=== PATIENT | male | born 1940 | race Caucasian/White ===

== ENCOUNTER 2023-05-12 09:26 | Emergency (ER) | payer MEDICARE, OTHER, SELFPAY ==
[2023-05-12 09:36] VITALS: BP 164/94; PULSE 91; RESP 16; TEMP 36.5; O2SAT 98; BMI 27.8
[2023-05-12 09:40] VITALS: BP 167/90; PULSE 88; RESP 16; O2SAT 95
--- NOTE | 2023-05-12 09:57 | ECG_ITS ---
[facility] Test Date: 2023-05-12 Pat Name: Ildefonso Vu Department: Room: Gender: Male Estimator And Drafter: : 1940 Requested By: Alexia Ridley Order Number: [id number] Harpreet MD: Tarah Nolasco M.D. Measurements Intervals [place] Rate: 92 P: 76 [place]: 175 QRS: -64 QRSD: 130 T: 59 QT: 372 QTc: 461 Interpretive Statements SINUS RHYTHM RIGHT BUNDLE BRANCH BLOCK [120+ ms QRS DURATION, UPRIGHT V1, 40+ ms S IN I/aVL/V4/V5/V6] LEFT ANTERIOR FASCICULAR BLOCK [QRS AXIS <= -45, QR IN I, RS IN II] POSSIBLE LEFT VENTRICULAR HYPERTROPHY [VOLTAGE CRITERIA PLUS LAE OR QRS WIDENING] No previous ECG available for comparison Electronically Signed On 05-12-2023 18:34:12 RESEARCH TECH by Tarah Nolasco M.D. [id number]
--- NOTE | 2023-05-12 09:57 | XR_ITS ---
WS: [id number] Exam: XR chest 1V portable [id number] Date/Time of Exam: 05/12/2023 10:00 AM Reason For Exam: dizziness No priors. The lungs are fully expanded and clear. Unremarkable cardiomediastinal silhouette for technique. No p leural effusions. Osseous structures are intact. IMPRESSION: 1. No acute cardiopulmonary finding.
--- NOTE | 2023-05-12 09:58 | ED_ITS ---
Documented by User: PASCUAL Iglesias 05/12/23 14:35 HPI - Dizziness General: Chief Complaint: Dizziness Stated Complaint: Dizzy, Nausea Time Seen by Provider: 05/12/23 09:46 Source: patient and family Mode of arrival: wheelchair Limitations: no limitations History of Present Illness: HPI Narrative: Patient is a nice 83-year-old male who presents to ED today along with several family members for concerns of dizziness. According to family and patient report he struck his head on a post approximately 7 to 10 days ago and feels like the dizziness started following this. He does not remember getting dizzy prior to hitting his head and states he did so out of clumsiness . Family states patient is normally ambulatory without any difficulty or assistance and often carries his grandchildren around the home. They state now he is not able to walk without assistance/falling. He was reportedly seen at [facility] a few days ago and admitted with hyponatremia and kept overnight and discharged the following day. Family and patient states symptoms have not improved. On exam, some mild smile asymmetry noted. states she mentioned this to [facility] as it was new. He does appear to have some very mild slurred speech. He does not complain of numbness, tingling, loss of sensation, or weakness to his extremities but does complain of generalized weakness. Patient states dizziness improves as long as I stay still and worsens with any form of movement, positional changes, ambulation. MD elicited complaint: dizziness Onset (ago): day(s) Severity: moderate Description: sense of movement, off-balance and difficulty walking History of similar symptoms: No Exacerbating factors: movement/ambulation and change in body position Relieving factors: remaining still Associated symptoms: Denies change in hearing, chest pain, chills, headache(s), malaise, nausea, nasal congestion, palpitations, syncope, tinnitus or vomiting Associated neuro symptoms: Deny numbness in extremities Stroke scale total: 2 Review of Systems Const: Denies: fever(s), chills, body aches, fatigue or malaise Eyes: Reports: change in vision (states I don't see as well as I used to but cannot elaborate any further ); Denies: blurry vision, photophobia, floaters or seeing flashes ENMT: Denies: throat pain, odynophagia, ear or mastoid pain, change in hearing, tinnitus, nasal discharge, nasal congestion or sinus pain Card: Denies: chest pain, palpitations, irregular heart rhythm, edema, swelling of feet/ankles, lightheadedness, syncope, pre-syncope, dyspnea on exertion, orthopnea, leg pain with exertion or acrocyanosis Resp: Denies: dyspnea, productive cough or pain on inspiration GI: Denies: abdominal pain, nausea, vomiting, heartburn or diarrhea : Denies: flank pain, difficulty urinating or dysuria Musc: Denies: neck pain, back pain, extremity pain, extremity swelling or joint pain Skin/Breast: Denies: rash Neuro: Reports: difficulty walking, frequent falls and dizziness; Denies: headache(s), numbness in extremities, weakness in extremities, sensory changes or seizure-like activity Physical Exam Const: COMMON NORMALS: no acute distress, average body habitus, patient oriented x3, no limitations, healthy appearing, alert and well nourished GENERAL APPEARANCE: cooperative ORIENTATION/CONSCIOUSNESS: Yes awake, Yes oriented to person and Yes oriented to place HENMT: COMMON NORMALS: normocephalic, atraumatic, hearing grossly normal bilaterally and external ears normal HEAD & SCALP: normal to inspection, normocephalic and atraumatic FACE & SINUS: other (asymmetrical smile noted) EXTERNAL EAR: Yes external ears normal Eye: GENERAL EYE: appearance normal, both eyes and all related structures and normal light reflex DIRECT OPHTHALMOSCOPY: Yes normal light reflex Neck/C-Spine: COMMON NORMALS: full ROM, no lymphadenopathy, supple and no meningeal signs Chest: COMMONS NORMALS: normal inspection of the chest Resp: COMMON NORMALS: normal respiratory effort and clear to auscultation bilaterally AUSCULTATION: clear to auscultation bilaterally Cardio: COMMON NORMALS: regular rate and regular rhythm RATE: regular rate RHYTHM: regular rhythm GI: COMMON NORMALS: Normal to inspection, nondistended, normoactive bowel sounds present, Soft to palpation, non-tender, No hepatosplenomegaly present and no masses PALPATION: Yes Soft to palpation and Yes No hepatosplenomegaly present : COMMON NORMALS: Yes no CVA tenderness BLADDER/KIDNEY EXAM: Yes no CVA tenderness Back/Pelvis: COMMON NORMALS: no CVA tenderness and thoracic and lumbar spine normal to inspection Extremity: COMMON NORMALS: normal to inspection, no clubbing, cyanosis or edema, no calf tenderness and no pedal edema GENERAL: Yes normal exam except as noted Neuro: LENA COMA SCALE: document GCS findings [place] coma scale eye opening: Spontaneous [place] coma scale verbal response: Orientated [place] coma scale motor response: Obey commands Lena coma scale total score: 15 COMMON NORMALS: patient oriented x3 SENSORIUM/ORIENTATION: Yes alert, Yes oriented to person and Yes oriented to place MENINGEAL SIGNS: Yes no meningeal signs CRANIAL NERVES: Yes CN VII (facial) Laterality: right CN VII findings: asymmetrical smile SPEECH: abnormal speech Details: slurred GAIT: Yes Unable to assess gait Skin: COMMON NORMALS: no rashes or lesions noted GENERAL SKIN EXAM: no rashes or lesions noted Course Vital Signs: Vital signs: Vital Signs Temperature 97.7 F 05/12/23 09:36 Pulse Rate 76 05/12/23 13:29 Respiratory Rate 16 05/12/23 12:00 Blood Pressure 162/88 05/12/23 13:29 Pulse Oximetry 97 05/12/23 13:29 Oxygen Delivery Me thod Room Air 05/12/23 13:29 MDM - Dizziness Medical Decision Making Patient's work-up here is essentially benign. Sodium was mildly low at 129. This is where he was when he was admitted to [facility]. These records were obtained and reviewed. UA is clear. CXR is unremarkable. CT head is negative. CTA head/neck is unremarkable. Patient actually ambulated here in the emerge ncy department fairly well. Dr. Moore aware of patient during his stay and agrees with current work-up/care plan here. We will transfer care to him for definitive disposition. ES Medical Records I reviewed the patient's medical records. Lab Data 05/12/23 10:12 05/12/23 10:12 Laboratory Results WBC 10.13 10^3/uL (3.29-11.43) 05/12/23 10:12 RBC 4.59 10^6/uL (3.85-5.65) 05/12/23 10:12 Hgb 14.20 g/dL (11.27-16.99) 05/12/23 10:12 Hct 41.7 % (37-53) 05/12/23 10:12 MCV 90.8 fl (82-101) 05/12/23 10:12 MCH 30.9 pg (27-33) 05/12/23 10:12 MCHC 34.1 g/dL (30-55) 05/12/23 10:12 RDW 12.7 % (12.1-15.1) 05/12/23 10:12 Plt Count 267 10^3/cmm (157-399) 05/12/23 10:12 MPV 8.5 fL (7.4-10.4) 05/12/23 10:12 Neut % (Auto) 67.3 % 05/12/23 10:12 Lymph % (Auto) 22.0 % 05/12/23 10:12 [place] % (Auto) 8.3 % 05/12/23 10:12 Eos % (Auto) 1.0 % 05/12/23 10:12 Baso % (Auto) 0.3 % 05/12/23 10:12 Neut # (Auto) 6.82 10^3/uL (1.8-7.7) 05/12/23 10:12 Lymph # (Auto) 2.2 10^3/uL (0.8-4.8) 05/12/23 10:12 [place] # (Auto) 0.8 10^3/uL (0.2-0.9) 05/12/23 10:12 Eos # (Auto) 0.1 10^3/uL (0.0-0.8) 05/12/23 10:12 Baso # (Auto) 0.0 10^3/uL (0.0-0.1) 05/12/23 10:12 Nucleated RBC % (auto) 0 % 05/12/23 10:12 Nucleated RBCs # 0.0 /100WBC 05/12/23 10:12 PT 13.40 SECONDS (12.1-14.9) 05/12/23 10:12 INR 0.99 (0.8-1.2) 05/12/23 10:12 APTT 26.3 SECONDS (23.9-36.7) 05/12/23 10:12 Sodium 129 mmol/L (136-145) L 05/12/23 10:12 Potassium 4.1 mmol/L (3.5-5.1) 05/12/23 10:12 Chloride 94 mmol/L (98-107) L 05/12/23 10:12 Carbon Dioxide 27 mmol/L (22-29) 05/12/23 10:12 Anion Gap 12.1 (5-19) 05/12/23 10:12 BUN 16 mg/dL (8-23) 05/12/23 10:12 Creatinine 1.2 mg/dL (0.7-1.2) 05/12/23 10:12 GFR Calculation Not Reportable 05/12/23 10:12 Glucose 93 mg/dL (65-115) 05/12/23 10:12 POC Glucose 113 mg/dL (70-110) H 05/12/23 10:03 Calculated Osmolality 269 mOsm/kg (285-295) L 05/12/23 10:12 Calcium 8.8 mg/dL (8.5-10.5) 05/12/23 10:12 Total Bilirubin 0.3 mg/dL (0.15-1.2) 05/12/23 10:12 AST 11 U/L (0-40) 05/12/23 10:12 ALT 9 U/L (0-41) 05/12/23 10:12 Alkaline Phosphatase 95 U/L (40-130) 05/12/23 10:12 Total Protein 5.8 g/dL (6.6-8.7) L 05/12/23 10:12 Albumin 3.6 g/dL (3.5-5.2) 05/12/23 10:12 Globulin 2.2 g/dL (1.3-4.6) 05/12/23 10:12 Urine Color Yellow (Yellow) 05/12/23 11:50 Urine Appearance Clear (CLEAR) 05/12/23 11:50 Urine pH 6.5 (5-7) 05/12/23 11:50 Ur Specific Malcolm 1.005 (1.005-1.030) 05/12/23 11:50 Urine Protein Neg (Negative) 05/12/23 11:50 Urine Glucose (UA) Norm (Normal) 05/12/23 11:50 Urine Ketones Negative (Negative) 05/12/23 11:50 Urine Blood Neg (Negative) 05/12/23 11:50 Urine Nitrate Negative (Negative) 05/12/23 11:50 Urine Bilirubin Neg (Negative) 05/12/23 11:50 Urine Urobilinogen Norm mg/dL (Negative) 05/12/23 11:50 Ur Leukocyte Esterase Negative (Negative) 05/12/23 11:50 All radiology interpretation(s) finalized by discharge Discharge Plan Discharge Patient Disposition: Home Clinical Impression: Cerebrovascular accident Condition: Stable Prescriptions: New aspirin 81 mg tablet,delayed release (DR/EC) 81 mg PO DAILY Qty: 30 0RF Plavix 75 mg tablet 75 mg PO DAILY Qty: 30 0RF atorvastatin 40 mg tablet 40 mg PO DAILY Qty: 30 0RF No Action trazodone 50 mg tablet 50 mg PO BEDTIME levetiracetam 250 mg tablet 250 mg PO BID meclizine 25 mg Tablet 25 mg PO QID PRN (Reason: Dizziness) levofloxacin 750 mg tablet 750 mg PO DAILY finasteride 5 mg tablet 5 mg PO DAILY memantine 10 mg tablet 10 mg PO BID Discharge Orders: Discharge ED (Routine); Ordered 05/12/23 Ordered By: Tato Moore Referrals: So Singh MD [Primary Care Provider] - Discharge Diet: Usual diet Discharge Activity: Increase activity as tolerated Patient Instructions: Opioid Safety, Pain Management Activity Restrictions/Additional Instructions: Thank you for choosing [facility] for your healthcare needs today. Please realize this is an emergency room and that we are providing you with a medical screening exam and this may not be complete and all inclusive of all the testing and or work up that you may need to determine your ailment or severity of your illness. It is very important that you follow up as instructed or that you return to the Emergency Department should you have concerns or if your condition changes or worsens in any way. You were seen today for signs of a stroke that likely occurred several days ago recommend you start aspirin Plavix and atorvastatin. We will set you up for an outpatient MRI of your head as well as echocardiogram and a 48-hour Holter monitor. You stated you would like to see the neurologist he had been seeing previously recommend you call their office and follow-up with them as soon as you are able. Coding Level of Care Code ED Fisher Troll Line for Luisa Desouza NIH stroke score NIHSS Level Of Consciousness - 1a: 0 Level Of Consciousness Questions - 1b: Both Correct Level Of Consciousness Commands - 1c: Both Correct Best Gaze - 2: Normal Visual Mac - 3: No Visual Loss Facial Palsy - 4: Minor Paralysis Motor Arm Right - 5: No Drift Motor Arm Left - 5: No Drift Motor Leg Right - 6: No Drift Motor Leg Left - 6: No Drift Limb Ataxia - 7: Absent Sensory - 8: Normal Best Language - 9: No Aphasia Dysarthia - 10: Mild/Moderate Dysarthia Extinction And Inattention - 11: 0 Score Total Score: 2 Documented by User: Tato Moore DO 05/12/23 17:19 HPI - Dizziness General: Chief Complaint: Dizziness Stated Complaint: Dizzy, Nausea Time Seen by Provider: 05/12/23 09:46 Physical Exam Neuro: LENA COMA SCALE: document GCS findings Lena coma scale total score: 15 Course Vital Signs: Vital signs: Vital Signs Temperature 97.7 F 05/12/23 09:36 Pulse Rate 76 05/12/23 13:29 Respiratory Rate 16 05/12/23 12:00 Blood Pressure 162/88 05/12/23 13:29 Pulse Oximetry 97 05/12/23 13:29 Oxygen Delivery Me thod Room Air 05/12/23 13:29 MDM - Dizziness Medical Decision Making Patient's work-up here is essentially benign. Sodium was mildly low at 129. This is where he was when he was admitted to [facility]. These records were obtained and reviewed. UA is clear. CXR is unremarkable. CT head is negative. CTA head/neck is unremarkable. Patient actually ambulated here in the emergency department fairly well. Dr. Moore aware of patient during his stay and agrees with current work-up/care plan here. We will transfer care to him for definitive disposition. ES Patient seen and examined. Discussed with the family. At this point he is outside the window for any kind of treatment he has very low NIH score elevated symptoms have actually been present for couple days his speech is actually improving. We will discharge patient home set him up for outpatient MRI head echo and Holter monitor follow-up with neurology sees neurologist in [place]. We will start him on dual platelet therapy and statin as well. Return if he has further problems. Lab Data I reviewed the patient's lab results. 05/12/23 10:12 05/12/23 10:12 Laboratory Results WBC 10.13 10^3/uL (3.29-11.43) 05/12/23 10:12 RBC 4.59 10^6/uL (3.85-5.65) 05/12/23 10:12 Hgb 14.20 g/dL (11.27-16.99) 05/12/23 10:12 Hct 41.7 % (37-53) 05/12/23 10:12 MCV 90.8 fl (82-101) 05/12/23 10:12 MCH 30.9 pg (27-33) 05/12/23 10:12 MCHC 34.1 g/dL (30-55) 05/12/23 10:12 RDW 12.7 % (12.1-15.1) 05/12/23 10:12 Plt Count 267 10^3/cmm (157-399) 05/12/23 10:12 MPV 8.5 fL (7.4-10.4) 05/12/23 10:12 Neut % (Auto) 67.3 % 05/12/23 10:12 Lymph % (Auto) 22.0 % 05/12/23 10:12 [place] % (Auto) 8.3 % 05/12/23 10:12 Eos % (Auto) 1.0 % 05/12/23 10:12 Baso % (Auto) 0.3 % 05/12/23 10:12 Neut # (Auto) 6.82 10^3/uL (1.8-7.7) 05/12/23 10:12 Lymph # (Auto) 2.2 10^3/uL (0.8-4.8) 05/12/23 10:12 [place] # (Auto) 0.8 10^3/uL (0.2-0.9) 05/12/23 10:12 Eos # (Auto) 0.1 10^3/uL (0.0-0.8) 05/12/23 10:12 Baso # (Auto) 0.0 10^3/uL (0.0-0.1) 05/12/23 10:12 Nucleated RBC % (auto) 0 % 05/12/23 10:12 Nucleated RBCs # 0.0 /100WBC 05/12/23 10:12 PT 13.40 SECONDS (12.1-14.9) 05/12/23 10:12 INR 0.99 (0.8-1.2) 05/12/23 10:12 APTT 26.3 SECONDS (23.9-36.7) 05/12/23 10:12 Sodium 129 mmol/L (136-145) L 05/12/23 10:12 Potassium 4.1 mmol/L (3.5-5.1) 05/12/23 10:12 Chloride 94 mmol/L (98-107) L 05/12/23 10:12 Carbon Dioxide 27 mmol/L (22-29) 05/12/23 10:12 Anion Gap 12.1 (5-19) 05/12/23 10:12 BUN 16 mg/dL (8-23) 05/12/23 10:12 Creatinine 1.2 mg/dL (0.7-1.2) 05/12/23 10:12 GFR Calculation Not Reportable 05/12/23 10:12 Glucose 93 mg/dL (65-115) 05/12/23 10:12 POC Glucose 113 mg/dL (70-110) H 05/12/23 10:03 Calculated Osmolality 269 mOsm/kg (285-295) L 05/12/23 10:12 Calcium 8.8 mg/dL (8.5-10.5) 05/12/23 10:12 Total Bilirubin 0.3 mg/dL (0.15-1.2) 05/12/23 10:12 AST 11 U/L (0-40) 05/12/23 10:12 ALT 9 U/L (0-41) 05/12/23 10:12 Alkaline Phosphatase 95 U/L (40-130) 05/12/23 10:12 Total Protein 5.8 g/dL (6.6-8.7) L 05/12/23 10:12 Albumin 3.6 g/dL (3.5-5.2) 05/12/23 10:12 Globulin 2.2 g/dL (1.3-4.6) 05/12/23 10:12 Urine Color Yellow (Yellow) 05/12/23 11:50 Urine Appearance Clear (CLEAR) 05/12/23 11:50 Urine pH 6.5 (5-7) 05/12/23 11:50 Ur Specific Malcolm 1.005 (1.005-1.030) 05/12/23 11:50 Urine Protein Neg (Negative) 05/12/23 11:50 Urine Glucose (UA) Norm (Normal) 05/12/23 11:50 Urine Ketones Negative (Negative) 05/12/23 11:50 Urine Blood Neg (Negative) 05/12/23 11:50 Urine Nitrate Negative (Negative) 05/12/23 11:50 Urine Bilirubin Neg (Negative) 05/12/23 11:50 Urine Urobilinogen Norm mg/dL (Negative) 05/12/23 11:50 Ur Leukocyte Esterase Negative (Negative) 05/12/23 11:50 Discharge Plan Discharge Patient Disposition: Home Clinical Impression: Cerebrovascular accident Condition: Stable Prescriptions: New aspirin 81 mg tablet,delayed release (DR/EC) 81 mg PO DAILY Qty: 30 0RF Plavix 75 mg tablet 75 mg PO DAILY Qty: 30 0RF atorvastatin 40 mg tablet 40 mg PO DAILY Qty: 30 0RF No Action trazodone 50 mg tablet 50 mg PO BEDTIME levetiracetam 250 mg tablet 250 mg PO BID meclizine 25 mg Tablet 25 mg PO QID PRN (Reason: Dizziness) levofloxacin 750 mg tablet 750 mg PO DAILY finasteride 5 mg tablet 5 mg PO DAILY memantine 10 mg tablet 10 mg PO BID Discharge Orders: Discharge ED (Routine); Ordered 05/12/23 Ordered By: Tato Moore Referrals: So Singh MD [Primary Care Provider] - Discharge Diet: Usual diet Discharge Activity: Increase activity as tolerated Patient Instructions: Opioid Safety, Pain Management Activity Restrictions/Additional Instructions: Thank you for choosing [facility] for your healthcare needs today. Please realize this is an emergency room and that we are providing you with a medical screening exam and this may not be complete and all inclusive of all the testing and or work up that you may need to determine your ailment or severity of your illness. It is very important that you follow up as instructed or that you return to the Emergency Department should you have concerns or if your condition changes or worsens in any way. You were seen today for signs of a stroke that likely occurred several days ago recommend you start aspirin Plavix and atorvastatin. We will set you up for an outpatient MRI of your head as well as echocardiogram and a 48-hour Holter monitor. You stated you would like to see the neurologist he had been seeing previously recommend you call their office and follow-up with them as soon as you are able. Coding Level of Care Code ED Fisher Troll Line for Luisa Desouza NIH stroke score Score Total Score: 2
[2023-05-12 10:10] LABS: Glucose Point of Care 113 mg/dL (70-110)
[2023-05-12 10:19] LABS: Basophils % 0.3 %; Eosinophils # 0.1 10^3/uL (0.0-0.8); Hematocrit 41.7 % (37-53); Lymphocytes # 2.2 10^3/uL (0.8-4.8); Mean Corpuscular HGB Conc 34.1 g/dL (30-55); Mean Corpuscular Hemoglobin 30.9 pg (27-33); Mean Corpuscular Volume 90.8 fl (82-101); Mean Platelet Volume 8.5 fL (7.4-10.4); Monocytes # 0.8 10^3/uL (0.2-0.9); Monocytes % 8.3 %; Neutrophils # 6.82 10^3/uL (1.8-7.7); Neutrophils % 67.3 %; Nucleated Red Blood Cells % 0 %; Platelet Count 267 10^3/cmm (157-399); Red Blood Count 4.59 10^6/uL (3.85-5.65); Red Cell Distribution Width 12.7 % (12.1-15.1); White Blood Count 10.13 10^3/uL (3.29-11.43)
[2023-05-12 10:33] LABS: INR 0.99 (0.8-1.2)
[2023-05-12 10:34] LABS: Partial Thromboplastin Time 26.3 SECONDS (23.9-36.7)
[2023-05-12 10:40] LABS: Alanine Aminotransferase 9 U/L (0-41); Albumin Level 3.6 g/dL (3.5-5.2); Alkaline Phosphatase 95 U/L (40-130); Anion Gap 12.1 (5-19); Aspartate Amino Transferase 11 U/L (0-40); Blood Urea Nitrogen 16 mg/dL (8-23); Calcium 8.8 mg/dL (8.5-10.5); Carbon Dioxide 27 mmol/L (22-29); Chloride 94 mmol/L (98-107); Globulin 2.2 g/dL (1.3-4.6); Glucose 93 mg/dL (65-115); Osmolality Calculated 269 mOsm/kg (285-295); Potassium 4.1 mmol/L (3.5-5.1); Sodium 129 mmol/L (136-145); Total Bilirubin 0.3 mg/dL (0.15-1.2); Total Protein 5.8 g/dL (6.6-8.7)
[2023-05-12] MEDS: iohexol 350 mg/mL 500 mL Btl (per mL) IV (10:44)
--- NOTE | 2023-05-12 10:50 | CT_ITS ---
WS: [id number] CTA HEAD AND NECK TECHNIQUE: Contrast enhanced CTA of the head and neck with coronal and sagittal reformatted images an d maximum intensity projection (MIP) images. NASCET criteria utilized. CLINICAL INFORMATION: dizziness, smile asymmetry, slurred speech COMPARISON: None. DLP: 1616.[address] scans at [facility] use at least one of these dose optimization techniques: automated e xposure control; mA and/or kV adjustment per patient size (includes targeted exams where dose is matc hed to clinical indication); or iterative reconstruction. FINDINGS: RIGHT: RIGHT common carotid artery is patent. No significant RIGHT ICA stenosis. RIGHT ICA is patent to the skull base. LEFT: LEFT common carotid artery is patent. Mild calcified atheromatous plaque LEFT carotid bulb exte nding into the ICA. LEFT ICA is patent to the skull base. Mild cavernous carotid calcification bilaterally. INTRACRANIAL CTA: LEFT dominant vertebral artery. Smaller but patent RIGHT vertebral artery. Vertebral arteries are pat ent to the basilar junction. Normal vascularity to the SODA JERKER territory bilaterally. Both ICAs are patent at the skull base. Normal vascularity to the PETE and MCA territories bilaterally . No evidence of proximal flow-limiting stenosis. Slight lobulation RIGHT MCA trifurcation with a sma ll 2 to 3 mm aneurysm best seen on the MIP imaging. Lung apices are well aerated. Mastoid air cells are well aerated. Paranasal sinuses are well aerated. Normal posterior nasopharynx and parapharyngeal fat. IMPRESSION: 1. No significant cervical ICA or intracranial flow-limiting stenosis. 2. Less than 50% ICA stenosis bilaterally. 3. 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 4. No other suspicious findings. Notified PASCUAL Iglesias at 05/12/2023 11:47 AM.
--- NOTE | 2023-05-12 10:50 | CT_ITS ---
WS: [id number] CT HEAD TECHNIQUE: Noncontrast CT of the head obtained from the skullbase to the vertex. CLINICAL INFORMATION: dizziness, smile asymmetry, slurred speech COMPARISON: None. DLP: 1616.[address] scans at [facility] use at least one of these dose optimization techniques: automated e xposure control; mA and/or kV adjustment per patient size (includes targeted exams where dose is matc hed to clinical indication); or iterative reconstruction. FINDINGS: No evidence of intracranial hemorrhage or mass effect. Ventricular system and basal cisterns are lopez nt. Mild small vessel changes with mild parenchymal volume loss. Intracranial vascular calcification. No extra-axial fluid collections. No evidence of mass or mass effect. Paranasal sinuses and mastoid air cells are well aerated. .Normal visualized soft tissues. IMPRESSION: 1. No evidence of intracranial hemorrhage or mass effect. 2. Mild small vessel changes. Mild parenchymal volume loss. 3. Intracranial vascular calcification 4. No acute intracranial findings.
[2023-05-12 11:00] VITALS: BP 158/82; PULSE 82; RESP 16; O2SAT 96
[2023-05-12 11:54] LABS: Add Urine Microscopic? NO; Charge for UA Resulting for Rev
[2023-05-12 12:00] VITALS: BP 167/91; PULSE 80; RESP 16; O2SAT 97
[2023-05-12 12:02] LABS: Bilirubin Urine Neg (Negative); Blood Urine Neg (Negative); Glucose Urine UA Norm (Normal); Ketones Urine Negative (Negative); Leukocyte Esterase Urine Negative (Negative); Nitrate Urine Negative (Negative); Protein Urine Neg (Negative); Specific Gravity, Urine 1.005 (1.005-1.030); Urine Appearance Clear (CLEAR); Urine Color Yellow (Yellow); Urobilinogen Urine Norm (Negative); pH Urine 6.5 (5-7)
[2023-05-12 13:02] VITALS: BP 120/94; BP 137/95; BP 155/82; PULSE 77; PULSE 83; PULSE 86
[2023-05-12 13:29] VITALS: BP 162/88; PULSE 76; O2SAT 97
--- NOTE | 2023-05-14 08:35 | DCPLANNER ---
Faxed MRI and Echo request to Centralized scheduling
== END 2023-05-12 14:07 | disposition home or self-care (01) ==
PROVIDERS: Physician Assistant; Emergency Provider Family Medicine; PCP Family Medicine
DX: I63.9 Cerebral infarction, unspecified (principal)
CPT/HCPCS: 36415; 36416; 70450; 70496; 70498; 71045; 80053; 81003; 82962; 85025; 85610; 85730; 93005; 99285; Q9967

== ENCOUNTER 2023-05-14 10:24 | Outpatient (RCR) | payer MEDICARE, OTHER, SELFPAY | END 2023-05-29 23:59 | disposition home or self-care (01) | LOC: SPT 10:24 | PROVIDERS: PCP Family Medicine; Visit Provider Physician Assistant | DX: R42 Dizziness and giddiness (principal) | CPT/HCPCS: 95992; 97161 ==

== ENCOUNTER 2023-05-30 06:00 | Outpatient (RCR) | payer MEDICARE, OTHER, SELFPAY | END 2023-06-29 23:59 | disposition home or self-care (01) | LOC: SPT 06:00 | PROVIDERS: PCP Family Medicine; Visit Provider Physician Assistant | DX: R42 Dizziness and giddiness (principal) | CPT/HCPCS: 95992 ==